=== PATIENT | female | born 2000 | race Caucasian/White ===

== ENCOUNTER 2018-01-16 13:49 | Emergency (ER) | payer SELFPAY ==
[~2018-01-16] VITALS: Ht 165.1 cm; Wt 61.2 kg
[2018-01-16 14:55] VITALS: BP 116/69
--- NOTE | 2018-01-16 15:20 | NUR ---
PT TO CHAIR E. AMBULATORY W/ STEADY GAIT.
--- NOTE | 2018-01-16 15:35 | NUR ---
17 YO F BIB MOTHER W/ C/O GENERALIZED BODY WEAKNESS AND JOINT PAIN X 2/3 WEEKS. PT REPORTS SHE WENT TO A DIFFERENT ER 1 WEEK AGO FOR SAME COMPLAINT AND THEY TOLD HER IT WAS A VIRUS. PT REPORTS NO RELIEF OF SYMPTOMS, THEY HAVE ACTUALLY WORSENED. PT A&O X 4 BUT APPEARS VERY TIRED. PT REPORTS DIZZINESS/LIGHTHEADEDNESS. PT REPORTS SHE HAS NOT HAD AN APPETITE, BUT HAS BEEN DRINKING WATER. [facility] 15. CMS INTACT. PT DENIES N/V AT THIS TIME. PT REPORTS THAT SHE HAS BEEN URINATING AND PRODUCING BM W/O ISSUE. REPORTS PAIN /10, BUT SHE SAYS IT IS MAINLY JOINT DISCOMFORT. RESPIRATIONS EVEN AND UNLABORED. LUNG SOUNDS BILATERALLY CLEAR. ER MD SECHRIST NOTIFIED. PT NEEDS MET AT THIS TIME. WILL CONTINUE TO MONITOR.
--- NOTE | 2018-01-16 16:24 | NUR ---
PATIENT ASKED WHEN ER MD WILL BE SEEN. ER MD SECHRIST NOTIFIED. NO ACUTE DISTRESS. PT IS AOX4. RR ARE EVEN AND UNLABORED.
[2018-01-16] MEDS ORDERED: KETOROLAC 60 MG/2 ML VIAL IM ONE (16:30)
[2018-01-16 17:13] LABS: BASOPHILS % (AUTO) 0.3 % (0.0-2.0); EOSINOPHILS % (AUTO) 0.1 % (0.0-4.0); HEMATOCRIT 34.1 % (36-48); HEMOGLOBIN 10.6 g/dL (12.0-16.0); LYMPHOCYTES # (AUTO) 1.6 K/uL (2.5-16.5); LYMPHOCYTES % (AUTO) 10.5 % (20.5-51.1); MEAN CORPUSCULAR HEMOGLOBIN 26 pg (27-31); MEAN CORPUSCULAR HGB CONC 31 g/dL (33-37); MEAN CORPUSCULAR VOLUME 82.2 fL (80-94); MONOCYTES % (AUTO) 6.3 % (1.7-9.3); NEUTROPHILS # (AUTO) 12.6 K/uL (1.8-7.7); NEUTROPHILS % (AUTO) 82.8 % (42.2-75.2); PLATELET COUNT (AUTO) 494 K/uL (140-450); RED BLOOD CELL COUNT(AUTO) 4.14 MIL/uL (4.20-5.40); RED CELL DISTRIBUTION WIDTH 13.9 % (11.6-13.7); WHITE BLOOD COUNT (AUTO) 15.3 K/uL (4.5-11.0)
[2018-01-16 17:26] LABS: ANION GAP 16.3 (8-16); CARBON DIOXIDE 27.5 mmol/L (21-32); CREATININE 0.6 mg/dL (0.6-1.3); POTASSIUM 3.8 mmol/L (3.5-5.1)
[2018-01-16 17:41] LABS: ALBUMIN 2.8 g/dL (3.4-5.0); MAGNESIUM 2.1 mg/dL (1.8-2.4); PHOSPHORUS 3.9 mg/dL (2.5-4.9); THYROID STIMULATING HORMONE 1.49 uIU/mL (0.34-3.74); TOTAL BILIRUBIN 0.4 mg/dL (0.0-1.0)
--- NOTE | 2018-01-16 17:50 | NUR ---
informed er md of vitals signs. new orders given.
[2018-01-16] MEDS ORDERED: NACL 0.9% 2,000 ML IV ONE (18:20)
--- NOTE | 2018-01-16 19:07 | NUR ---
PATIENT'S VITAL SIGNS IMPROVED. PT WITH NO COMPLAINTS. ALL NEEDS MET AT THIS TIME.
--- NOTE | 2018-01-16 19:24 | NUR ---
Pt report given to Ranjana DOZIER. Transfer of care at this time.
--- NOTE | 2018-01-16 19:33 | NUR ---
REPORT RECEIVED FROM MORNING SHIFT. PT SITTING IN CHAIR WITH MOTHER. DENIES ANY PAIN AND STATED FEELING MUCH BETTER. NO ACUTE DISTRESS NOTED. WILL CONTINUE TO MONITOR.
[2018-01-16 19:39] LABS: APPEARANCE,URINE CLEAR (CLEAR); BILIRUBIN,URINE NEGATIVE (NEGATIVE); BLOOD, URINE NEGATIVE (NEGATIVE); COLOR,URINE YELLOW (YELLOW); LEUKOCYTE ESTERASE ,URINE NEGATIVE (NEGATIVE); NITRITE, URINE NEGATIVE (NEGATIVE); PH,URINE 6.5 (5.0-9.0); UGLUCOSE NEGATIVE (NEGATIVE)
--- NOTE | 2018-01-16 19:45 | NUR ---
DR. LEVINE TALKING TO THE PT.
[2018-01-16 19:58] LABS: BARBITURATE, URINE NEG. ng/ml (NEG <=200); BENZODIAZEPINE, URINE NEG. ng/mL (NEG <=200); CANNABINOID, URINE NEG. ng/mL (NEG <=50); COCAINE, URINE NEG. ng/mL (NEG <=300); OPIATE, URINE NEG. ng/mL (NEG <=2000); PHENCYCLIDINE SCREEN,URINE NEG. ng/mL (NEG <=25)
[2018-01-16 19:59] VITALS: BP 116/77
--- NOTE | 2018-01-16 20:00 | NUR ---
Patient discharged with v/s stable. Written and verbal after care instructions given and explained. Patient verbalized understanding. Ambulatory with steady gait. All questions addressed prior to discharge. Advised to follow up with PMD. IV LINE DISCONINUED. ID BAND REMOVED.
== END 2018-01-16 20:00 | disposition home or self-care (01) ==
LOC: MED 13:49
DX: R53.1 Weakness (principal); E86.0 Dehydration; D64.9 Anemia, unspecified; R74.0 Nonspecific elevation of levels of transaminase and lactic acid dehydrogenase [LDH]
CPT/HCPCS: 36415; 80053; 80305; 81003; 82550; 83690; 83735; 84100; 84443; 85025; 96360; 96372; 99284; G0482; J1885; J7030